=== PATIENT | male | born 1980 | race Caucasian/White ===

== ENCOUNTER 2020-12-08 09:01 | Emergency (ER) | payer OTHER, SELFPAY ==
[2020-12-08 09:02] VITALS: BP 117/106; PULSE 99; RESP 16; TEMP 37.2; O2SAT 95; BMI 20.8
--- NOTE | 2020-12-08 09:02 | NURSING ---
NO OLD EKGS
--- NOTE | 2020-12-08 09:09 | EKG12_ITS ---
Test Reason : CP Blood Pressure : / mmHG Vent. Rate : 092 BPM Atrial Rate : 092 BPM P-R Int : 120 ms QRS Dur : 092 ms QT Int : 344 ms P-R-T Axes : 054 082 058 degrees QTc Int : 425 ms Normal sinus rhythm Normal ECG Confirmed by SCOTTY VELASQUEZ, ANGEL ([id number]), television news video editor ARLENE FLORENTINO ([id number]) on 12/13/2020 12:49:25 PM Referred By: TITO Confirmed By:ANGEL FAJARDO MD
--- NOTE | 2020-12-08 09:10 | RAD_ITS ---
STUDY: X-RAY CHEST REASON FOR EXAM: Male, 40 years old. Chest pain, SVT, rapid heart rate TECHNIQUE: Single AP portable view of the chest. COMPARISON: None. FINDINGS: EKG electrodes are seen. The lungs are clear and expanded. There is no demonstrated pleural abnormality. Normal size heart. Normal mediastinum and kolton. Normal visualized pulmonary arteries. Normal visualized aortic arch and descending thoracic aorta. Normal visualized thoracic spine. Normal visualized ribs, clavicles, and shoulders. There is no demonstrated abnormality of the visualized soft tissue structures of the upper abdomen. RAD/Chest 1 View (Portable) IMPRESSION: Normal x-ray examination of the chest. Electronically Signed: Andrea Greco MD at 9:31 EDT , Service support ,
--- NOTE | 2020-12-08 09:10 | ED.VIS.CHEST ---
HPI History of Present Illness Chief Complaint: Palpitations Informant: patient and EMS Narrative Narrative: 40-year-old male presents the emergency department following an episode of SVT. He tells me that he was at work when he began to feel a clogged feeling in his chest. 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 Upon EMS arrival his EKG showed heart rate of 246 bpm narrow complex. They administered adenosine and converted to a sinus tachycardia. Arriving in the emergency department heart rate is now down to the 90s. He was never hypotensive. Patient states the symptoms have resolved at this time. He is never had this experience before. He is a smoker. He notes that he drinks at least a 12 pack a day. He denies any known medical issues. PFSH PFSH no medical history Home Medications NK 12/08/20 [History Last Taken Unknown] Allergy/AdvReac Type Severity Reaction Status Date / Time No Known Allergies Allergy Verified 06/02/15 12:24 no surgical history Social History (Updated 12/08/20 @ 09:[address] Chito Troy, DO) Smoking Status: Current every day smoker tobacco type: cigarettes alcohol intake: current alcohol intake frequency: 3 or more drinks per day ROS ROS ED Constitutional Constitutional ED: Denies chills or weight loss Eyes Eyes: Denies change in vision or diplopia ENT ENT ED: Denies ear pain, rhinorrhea or sore throat Cardiovascular Cardiovascular: Reports chest pain and racing heartbeat; Denies orthopnea Respiratory/Chest Respiratory/Chest: Denies cough, dyspnea or orthopnea Gastrointestinal Gastrointestinal: Denies abdominal pain, diarrhea, nausea or vomiting Genitourinary Genitourinary ED: Denies dysuria, hematuria or urinary frequency Musculoskeletal Musculoskeletal: Denies arthralgias or myalgias Integumentary Denies abscess or rash Neurologic Neurologic: Denies headache(s) or weakness Psychiatric Psychiatric: Denies anxiety, depression, suicidal ideation or suicidal thoughts Endocrine Endocrinology: Denies polydipsia, polyphagia or polyuria Allergic/Immunologic Allergic/Immunologic ED: Denies mouth swelling, tongue swelling or urticaria EXAM Physical Exam Const Vital Signs: 12/08/20 09:02 12/08/20 09:06 Temperature 98.9 F Temperature Source Oral Pulse Rate 99 Respiratory Rate 16 Respiratory Effort Normal Non-Labored Blood Pressure 117/106 H Blood Pressure Mean 109 Pulse Ox 95 Oxygen Delivery Method Room Air Positive well nourished and well developed General Appearance ED: well developed HEENT Reports normocephalic, head/scalp atraumatic and moist mucous membranes Eyes PERRL and EOMs intact bilaterally Neck no lymphadenopathy, supple and no JVD Resp normal respiratory effort and clear to auscultation bilaterally Cardio regular rate, regular rhythm and no murmurs GI normal to inspection, nondistended, normoactive bowel sounds and non-tender Palpation: soft Back/Spine no CVA tenderness and normal ROM Extremity normal to inspection General Extremety ED: Negative for edema General Extremity: Negative for edema Neuro oriented x3 and CN's II-XII intact bilaterally Sensorium / Orientation: alert Motor Exam: strength 5/5 throughout Psych mental status grossly normal Mood & Affect: Negative for depressed or tearful Skin no rashes or lesions noted and no wounds Heart Score History: Slightly/Non-Suspicious ECG: Normal Age: </= 45 years Risk Factors: 1 or 2 Risk Factors Troponin: </= Normal Limit Score: 1 MDM MDM MDM Narrative Medical decision making narrative: My interpretation of the chest x-ray is no acute process. He has remained in a sinus rhythm. Electrolytes are normal. Thyroid is normal. Troponin 15.6. Alcohol negative. At this point I spoke with on-call cardiology Dr. Amaya. They will follow up him in the office. Return if worsening or concerns Lab Data Attestation: I reviewed the patient's lab results. Labs: Laboratory Results - last 24 hr 12/08/20 12/08/20 12/08/20 09:05 09:05 09:05 WBC 7.7 RBC 4.76 Hgb 16.0 Hct 47.1 MCV 98.9 H MCH 33.6 H MCHC 34.0 RDW Std Deviation 51.2 H RDW Coeff of Diomedes 14.1 Plt Count 207 MPV 9.2 Immature Gran % (Auto) 0.400 Neut % (Auto) 64.7 Lymph % (Auto) 19.0 Garza % (Auto) 12.9 H Eos % (Auto) 1.7 Baso % (Auto) 1.3 H Absolute Neuts (auto) 5.0 Absolute Lymphs (auto) 1.45 Nucleated RBC % 0 Sodium 135 L Potassium 4.2 Chloride 101 Carbon Dioxide 30.0 Anion Gap 4 L BUN 6 L Creatinine 1.04 Estim Creat Clear Calc 89.77 Est GFR (MDRD) Af Amer 101 Est GFR (MDRD) Non-Af 83 BUN/Creatinine Ratio 5.8 L Glucose 103 Calcium 8.8 Magnesium 2.2 Total Bilirubin 0.70 AST 36 ALT 27 Alkaline Phosphatase 70 Troponin I High Sens 15.6 Total Protein 7.9 Albumin 3.8 Globulin 4.1 Albumin/Globulin Ratio 0.9 TSH 2.76 Urine Color Urine Clarity Urine pH Ur Specific [place] Urine Protein Urine Glucose (UA) Urine Ketones Urine Occult Blood Urine Nitrite Urine Bilirubin Urine Urobilinogen Ur Leukocyte Esterase Urine RBC Urine WBC Ur Squamous Epith Cells Urine Bacteria Urine Mucus Urine Opiates Screen Urine Methadone Screen Ur Barbiturates Screen Ur Phencyclidine Scrn Ur Amphetamines Screen U Methamphetamin-MDMA U Benzodiazepines Scrn Urine Cocaine Screen U Cannabinoids Screen Ur Drug Screen Comment Ethyl Alcohol < 3.0 12/08/20 12/08/20 10:08 10:08 WBC RBC Hgb Hct MCV MCH MCHC RDW Std Deviation RDW Coeff of Diomedes Plt Count MPV Immature Gran % (Auto) Neut % (Auto) Lymph % (Auto) Garza % (Auto) Eos % (Auto) Baso % (Auto) Absolute Neuts (auto) Absolute Lymphs (auto) Nucleated RBC % Sodium Potassium Chloride Carbon Dioxide Anion Gap BUN Creatinine Estim Creat Clear Calc Est GFR (MDRD) Af Amer Est GFR (MDRD) Non-Af BUN/Creatinine Ratio Glucose Calcium Magnesium Total Bilirubin AST ALT Alkaline Phosphatase Troponin I High Sens Total Protein Albumin Globulin Albumin/Globulin Ratio TSH Urine Color Yellow Urine Clarity Sl. Cloudy Urine pH 6.0 Ur Specific [place] 1.020 Urine Protein 30 H Urine Glucose (UA) Normal Urine Ketones 50 H Urine Occult Blood Negative Urine Nitrite Negative Urine Bilirubin 1 H Urine Urobilinogen 1 H Ur Leukocyte Esterase 25 H Urine RBC 0 SEEN Urine WBC 0-5 SEEN Ur Squamous Epith Cells 0-5 SEEN Urine Bacteria 0 SEEN Urine Mucus 1+ Urine Opiates Screen NEGATIVE Urine Methadone Screen NEGATIVE Ur Barbiturates Screen NEGATIVE Ur Phencyclidine Scrn NEGATIVE Ur Amphetamines Screen NEGATIVE U Methamphetamin-MDMA NEGATIVE U Benzodiazepines Scrn NEGATIVE Urine Cocaine Screen NEGATIVE U Cannabinoids Screen POSITIVE H Ur Drug Screen Comment Ethyl Alcohol Radiography Diagnostic Testing: Radiology Impression Chest X-Ray 12/08/20 09:10 IMPRESSION: Normal x-ray examination of the chest. Electronically Signed: Andrea Greco MD at 9:31 EDT , Service support , EKG Initial EKG: Interpretation: Sinus Rhythm Comments: EKG demonstrates a sinus rhythm at a rate of 92 bpm. No concerning features of ACS or ectopy noted. Discharge Plan Triage Chief Complaint: Palpitations ED Provider: Chito Troy Dx/Rx/DC Orders Clinical Impression: Supraventricular tachycardia Instructions: ED Understanding Supraventricular Tachycardia (SVT) Prescriptions: No Action NK RF: 0 Primary Care Provider: Care Physician,No Primary Referrals: Андрей Amaya MD [STAFF PHYSICIAN] - As soon as possible (for cardiology) Care Physician,No Primary [Primary Care Provider] - Disposition Disposition: Home, Self Care
[2020-12-08 09:15] LABS: Absolute Lymphocyte Count 1.45 X10^3/uL (0.83-4.51); Basophil% 1.3 % (0-1); Eosinophil# 0.13 X10^3/uL; Eosinophils% 1.7 % (0-5); Hematocrit 47.1 % (40-54); Lymphocyte # 1.45 X10^3/ul (0.83-4.51); Mean Corpuscular Hgb 33.6 pg (27.0-32.0); Mean Corpuscular Volume 98.9 fL (80-94); Mean Platelet Vol. 9.2 fl (6.2-12.0); Monocyte# 0.99 X10^3/uL; Monocyte% 12.9 % (0-10); NRBC Flagged by Analyzer 0 % (0-5); Neutrophil # 4.95 X10^3/uL (2.7-7.7); Neutrophil % 64.7 % (47-70); Platelet Count 207 K/mm3 (150-450); RBC Distribution Width CV 14.1 % (11.6-14.6); RBC Distribution Width SD 51.2 fl (35.1-43.9); Red Blood Count 4.76 M/mm3 (4.6-6.2); White Blood Count 7.7 K/mm3 (4.4-11.0)
[2020-12-08 09:43] LABS: ALB/GLOB Ratio 0.9 RATIO (0.9-2.4); AST(SGOT) 36 U/L (15-37); Alanine Aminotransfer ALT/SGPT 27 U/L (16-61); Albumin, Serum 3.8 g/dL (3.2-5.0); Alcohol, Blood (Medical)-Serum < 3.0 mg/dL; Alkaline Phosphatase 70 U/L (45-117); Anion Gap 4 (5-15); BUN 6 mg/dL (7-18); BUN/Creat Ratio 5.8 RATIO (10-20); Calcium,Total 8.8 mg/dL (8.5-10.1); Chloride 101 mmol/L (98-107); Creatinine, Serum 1.04 mg/dL (0.70-1.30); EST Glomerular Filtration Rate 83 mL/min (>60); Est Glom Filt Rate - Afr Amer 101 mL/min (>60); Estimated Creatinine Clearance 89.77 ml/min; Globulin 4.1 g/dL (2.2-4.2); Glucose 103 mg/dL (74-106); Magnesium 2.2 mg/dL (1.6-2.6); Potassium 4.2 mmol/L (3.5-5.1); Protein, Total 7.9 g/dL (6.4-8.2); Sodium Level 135 mmol/L (136-145); Thyroid Stim Hormone (TSH) 2.76 uIU/mL (0.358-3.74); Troponin-I HS 15.6 pg/mL (3.0-78.5)
[2020-12-08 10:24] LABS: Bacteria 0 SEEN /hpf (None Seen); Red Blood Cells-Urine 0 SEEN /hpf (0-5)
[2020-12-08 10:26] LABS: Color, Urine Yellow (Yellow); Glucose, Dipstick Normal (Normal); Ketone-Dipstick 50 mg/dl (Negative); Leukocyte Esterase-Dipstick 25 /ul (Negative); Nitrite-Dipstick Negative (Negative); Occult Blood-Urine Negative /ul (Negative); Protein-Dipstick 30 mg/dl (Negative); Urine Clarity Sl. Cloudy (Clear); Urine Urobilinogen 1 mg/dl (Normal)
[2020-12-08 10:28] LABS: Urine Bilirubin Dipstick 1 mg/dL (Negative)
[2020-12-08 10:37] LABS: Amphetamine Urine VISTA NEGATIVE (<1000 ng/mL); Barbiturate Urine VISTA NEGATIVE (< 200 ng/mL); Benzodiazepine Urine VISTA NEGATIVE (< 200 ng/mL); Cocaine Urine VISTA NEGATIVE (< 300 ng/mL); Ecstacy Urine VISTA NEGATIVE (< 500 ng/mL); Methadone Urine VISTA NEGATIVE (< 300 ng/mL); Mucous, Urine 1+ /hpf (<or=2+); PCP Urine VISTA NEGATIVE (< 25 ng/mL); Squamous Epithelial Cells - UA 0-5 SEEN /hpf (0-5); THC Urine VISTA POSITIVE (< 50 ng/mL); Vista UDS pH Range 5; White Blood Cells 0-5 SEEN /hpf (0-5)
[2020-12-08 11:15] VITALS: BP 150/104; PULSE 80; RESP 14; O2SAT 97
== END 2020-12-08 11:17 | disposition home or self-care (01) ==
PROVIDERS: Emergency Provider Emergency Medicine
DX: I47.1 Supraventricular tachycardia (principal); F17.210 Nicotine dependence, cigarettes, uncomplicated
CPT/HCPCS: 71045; 80053; 80307; 81001; 82077; 83735; 84443; 84484; 85025; 93005; 99285; J7030; A4216

== ENCOUNTER 2021-01-27 14:51 | Emergency (ER) | payer SELFPAY ==
[2021-01-27 14:52] VITALS: BP 139/109; PULSE 108; RESP 18; TEMP 36.8; O2SAT 98; BMI 19.8
[2021-01-27 15:15] VITALS: PULSE 99; RESP 22; O2SAT 95
--- NOTE | 2021-01-27 15:31 | EKG12_ITS ---
Test Reason : PALPS Blood Pressure : / mmHG Vent. Rate : 099 BPM Atrial Rate : 099 BPM P-R Int : 128 ms QRS Dur : 086 ms QT Int : 338 ms P-R-T Axes : 047 078 050 degrees QTc Int : 433 ms Normal sinus rhythm Normal ECG Confirmed by ERNIE VELASQUEZ, DUANE ([id number]), brands editor ARLENE FLORENTINO ([id number]) on 01/31/2021 10:35:09 AM Referred By: GABRIELLA Confirmed By:DUANE KLEIN MD
--- NOTE | 2021-01-27 15:43 | RAD_ITS ---
INDICATION: Chest pain EXAMINATION/TECHNIQUE: X-RAY - XR Chest 1 View COMPARISON: 12/08/2020. FINDINGS: The lungs are clear. The cardiomediastinal silhouette is unremarkable. No pleural effusion or pneumothorax. No acute osseous abnormalities. RAD/Chest 1 View (Portable) IMPRESSION: No acute radiographic abnormalities. Electronically Signed: Jey Zavala MD at 16:18 EDT Tel , Service support ,
--- NOTE | 2021-01-27 15:43 | EX.ED.DYSGE1 ---
HPI History of Present Illness Chief Complaint: Palpitations Informant: patient Onset/Context/Timing Onset: Today Context: Sudden Onset Timing: Continuous Quality: Pounding Location: Chest Relieved by: Nothing Narrative Narrative: Patient presents with rapid heart rate that began today. Patient states he felt like his heart was pounding. Patient states he had a similar episode last week. Patient states nothing makes it better nothing makes it worse. Patient admits to some nausea and vomiting with this. Patient admits to some sweats with this. Patient states he had some pain in his upper neck anteriorly with the pounding. Patient denies any fevers or chills. Patient denies any shortness of breath or cough. EMS noted the patient had a heart rate of 243. They administered 6 mg of adenosine. Patient's heart rate improved to a normal sinus rhythm after this. [facility] Medical History ETOH abuse Marijuana use Supraventricular tachycardia Tobacco abuse Home Medications NK 12/08/20 [History Last Taken Unknown] Allergy/AdvReac Type Severity Reaction Status Date / Time No Known Allergies Allergy Verified 01/21/21 13:23 no surgical history Social History Smoking Status: Current every day smoker tobacco type: cigarettes alcohol intake: current alcohol intake frequency: 3 or more drinks per day ROS ROS ED Constitutional Constitutional ED: Reports sweats; Denies chills or fever(s) Eyes Eyes: Denies blurry vision or change in vision ENT ENT ED: Denies rhinorrhea or sore throat Cardiovascular Cardiovascular: Reports palpitations; Denies chest pain Respiratory/Chest Respiratory/Chest: Denies cough or dyspnea Gastrointestinal Gastrointestinal: Reports nausea and vomiting Genitourinary Genitourinary ED: Denies dysuria or hematuria Musculoskeletal Musculoskeletal: Reports back pain; Denies neck pain Integumentary Reports rash; Denies abscess Neurologic Neurologic: Denies headache(s) or weakness Allergic/Immunologic Allergic/Immunologic ED: Denies mouth swelling or urticaria EXAM Physical Exam Const Vital Signs: 01/27/21 14:52 01/27/21 15:15 01/27/21 16:26 Temperature 98.2 F Temperature Source Oral Pulse Rate 108 H 99 90 Respiratory Rate 18 22 H 17 Blood Pressure 139/109 H 150/95 H Blood Pressure Mean 119 113 Pulse Ox 98 95 99 Oxygen Delivery Method Room Air Room Air Room Air 01/27/21 17:00 01/27/21 18:25 Temperature Temperature Source Pulse Rate 87 94 Respiratory Rate 16 18 Blood Pressure 143/102 H 148/94 H Blood Pressure Mean 115 Pulse Ox 99 97 Oxygen Delivery Method Room Air Positive well nourished and well developed General Appearance ED: well developed HEENT Reports moist mucous membranes Neck supple and no JVD Resp normal respiratory effort and clear to auscultation bilaterally Cardio regular rate, regular rhythm and no murmurs GI normal to inspection, nondistended, normoactive bowel sounds and non-tender Palpation: soft Extremity normal to inspection General Extremety ED: Negative for edema or tenderness General Extremity: Negative for edema Neuro oriented x3, CN's II-XII intact bilaterally and no sensory deficits noted Sensorium / Orientation: alert Motor Exam: strength 5/5 throughout Psych mental status grossly normal Skin no rashes or lesions noted MDM MDM MDM Narrative Medical decision making narrative: EKG was obtained. On my interpretation, it showed a normal sinus rhythm with a rate of 99. MA interval, QRS interval, and QTc intervals were all normal. [place] was normal. There are no acute ST or T wave changes. CBC and comprehensive metabolic profile were obtained and were essentially within normal limits. Potassium was slightly low. Patient was given a dose of oral potassium. High-sensitivity troponin was normal. 2-hour repeat high-sensitivity troponin was normal. Portable 1 view chest x-ray was obtained. On my interpretation, lung roy are clear. There is normal cardiac silhouette. Bony thorax is normal. There is no acute process noted. Radiologist also interpreted the x-ray and agrees. Patient had no further episodes of SVT here in the emergency department. Patient was referred back to Dr. Amaya for follow-up care. Patient was also given a referral [facility]. Patient initially requested COVID-19 vaccine. However, nurse reported that the patient change his mind and no longer wants this. Patient was instructed return if worse in any way. Patient understood and was agreeable with the plan. All questions were answered. Lab Data Attestation: I reviewed the patient's lab results. Labs: Laboratory Results - last 24 hr 01/27/21 01/27/21 01/27/21 14:55 14:55 16:55 WBC 8.1 RBC 4.51 L Hgb 16.2 Hct 44.2 MCV 98.0 H MCH 35.9 H MCHC 36.7 H RDW Std Deviation 54.2 H RDW Coeff of Diomedes 15.1 H Plt Count 135 L MPV 10.0 Immature Gran % (Auto) 0.400 Neut % (Auto) 72.0 H Lymph % (Auto) 17.7 L [place] % (Auto) 9.0 Eos % (Auto) 0.4 Baso % (Auto) 0.5 Absolute Neuts (auto) 5.8 Absolute Lymphs (auto) 1.43 Nucleated RBC % 0 Sodium 136 Potassium 3.1 L Chloride 96 L Carbon Dioxide 29.0 Anion Gap 11 BUN 4 L Creatinine 0.71 Estim Creat Clear Calc 124.91 Est GFR (MDRD) Af Amer 156 Est GFR (MDRD) Non-Af 129 BUN/Creatinine Ratio 5.6 L Glucose 90 Calcium 8.6 Total Bilirubin 0.70 AST 116 H ALT 91 H Alkaline Phosphatase 108 Troponin I High Sens 7 12 Total Protein 7.5 Albumin 3.6 Globulin 3.9 Albumin/Globulin Ratio 0.9 Radiography Chest X-Ray - ED: 1 View, Read by ED Physician, Read by Radiologist and Normal Diagnostic Testing: Radiology Impression Chest X-Ray 01/27/21 15:43 IMPRESSION: No acute radiographic abnormalities. Electronically Signed: Jey Zavala MD at 16:18 EDT Tel , Service support , EKG Initial EKG: Attestation: I personally reviewed and interpreted this EKG as follows: Interpretation: Sinus Rhythm (99) and No Acute Injury Pattern Prior EKG tracings: available for review Prior: Unchanged (12/08/2020) Discharge Plan Triage Chief Complaint: Palpitations ED Provider: Bryant Ramírez Dx/Rx/DC Orders Clinical Impression: Supraventricular tachycardia, ETOH abuse Instructions: ED Understanding Supraventricular Tachycardia (SVT) Prescriptions: No Action NK RF: 0 Primary Care Provider: Care Physician,No Primary Referrals: Андрей Amaya MD [STAFF PHYSICIAN] - 3-5 Days Pauline Cardozo [NON-STAFF] - 3-5 Days Care Physician,No Primary [Primary Care Provider] - Disposition Disposition: Home, Self Care Discharge Date/Time: 01/27/21 18:27
[2021-01-27] MEDS: 0.9% Normal Saline 1,000 ML 1000 ML IV (15:45)
[2021-01-27 16:07] LABS: Absolute Lymphocyte Count 1.43 X10^3/uL (0.83-4.51); Absolute Neutrophil Count 5.8 X10^3/uL (2.0-7.7); Basophil# 0.04 X10^3/uL; Basophil% 0.5 % (0-1); Eosinophil# 0.03 X10^3/uL; Eosinophils% 0.4 % (0-5); Hematocrit 44.2 % (40-54); Hemoglobin 16.2 g/dL (13.0-16.5); Lymphocyte # 1.43 X10^3/ul (0.83-4.51); Lymphocyte % 17.7 % (19-41); Mean Corp Hgb Conc 36.7 g/dL (32-36); Mean Corpuscular Hgb 35.9 pg (27.0-32.0); Monocyte# 0.73 X10^3/uL; NRBC Flagged by Analyzer 0 % (0-5); Neutrophil # 5.81 X10^3/uL (2.7-7.7); Platelet Count 135 K/mm3 (150-450); RBC Distribution Width CV 15.1 % (11.6-14.6); RBC Distribution Width SD 54.2 fl (35.1-43.9); Red Blood Count 4.51 M/mm3 (4.6-6.2); White Blood Count 8.1 K/mm3 (4.4-11.0)
[2021-01-27 16:16] LABS: ALB/GLOB Ratio 0.9 RATIO (0.9-2.4); AST(SGOT) 116 U/L (15-37); Alanine Aminotransfer ALT/SGPT 91 U/L (16-61); Albumin, Serum 3.6 g/dL (3.2-5.0); Alkaline Phosphatase 108 U/L (45-117); Anion Gap 11 (5-15); BUN 4 mg/dL (7-18); BUN/Creat Ratio 5.6 RATIO (10-20); Calcium,Total 8.6 mg/dL (8.5-10.1); Chloride 96 mmol/L (98-107); Creatinine, Serum 0.71 mg/dL (0.70-1.30); EST Glomerular Filtration Rate 129 mL/min (>60); Est Glom Filt Rate - Afr Amer 156 mL/min (>60); Estimated Creatinine Clearance 124.91 ml/min; Globulin 3.9 g/dL (2.2-4.2); Glucose 90 mg/dL (74-106); Potassium 3.1 mmol/L (3.5-5.1); Protein, Total 7.5 g/dL (6.4-8.2); Sodium Level 136 mmol/L (136-145); Troponin-I HS 7 pg/mL (3.0-78.0)
[2021-01-27 16:26] VITALS: BP 150/95; PULSE 90; RESP 17; O2SAT 99
[2021-01-27 17:00] VITALS: BP 143/102; PULSE 87; RESP 16; O2SAT 99
[2021-01-27 17:37] LABS: Troponin-I HS 12 pg/mL (3.0-78.0)
[2021-01-27] MEDS: Potassium Chloride Oral Tablet 20 MEQ 40 MEQ PO (18:20)
[2021-01-27 18:25] VITALS: BP 148/94; PULSE 94; RESP 18; O2SAT 97
--- NOTE | 2021-01-27 18:26 | ED.RN ---
THIS NURSE REVIEWED D/C INSTRUCTIONS WITH PT. PT VERBALIZED UNDERSTANDING OF INSTRUCTIONS. IV D/C. IV CATHETER INTACT. PT TOLERATED WELL. PT DENIES FURTHER NEEDS OR QUESTIONS AT THIS TIME. PT AMBULATES FROM ROOM ON OWN WITHOUT ASSISTANCE FROM STAFF
== END 2021-01-27 18:27 | disposition home or self-care (01) ==
PROVIDERS: Emergency Provider Emergency Medicine
DX: I47.1 Supraventricular tachycardia (principal); F10.10 Alcohol abuse, uncomplicated; F17.210 Nicotine dependence, cigarettes, uncomplicated; Z23 Encounter for immunization
CPT/HCPCS: 36415; 71045; 80053; 84484; 85025; 91303; 93005; 96360; 99285; J7030; A4216